=== PATIENT | female | born 1935 | race Asian ===

== ENCOUNTER → 2020-03-27 | Outpatient (CLI) | payer MEDICARE, BC ==
[2020-03-28 15:32] LABS: Creatinine, Urine Random 25.3 mg/dL (27.00-270.00); Protein, Urine Random 11.8 mg/dL (0.0-11.9)
[2020-03-28 16:03] LABS: Bilirubin, Urine Neg (Neg); Blood, Urine Neg (Neg); Glucose Qualitative, Urine 2+ (Neg); Ketones, Urine Neg (Neg); Leukocyte Esterase, Urine Neg (Neg); Nitrite, Urine Neg (Neg); Protein, Urine Neg (Neg); Urobilinogen, Urine NORM (Normal)
[2020-03-28 16:04] LABS: Appearance, Urine Clear (Clear); Color, Urine Yellow (P-Yellow)
== END | disposition home or self-care (01) ==
LOC: LAB SHORT 09:00 → OLS 09:00
PROVIDERS: Internal Medicine
DX: R80.9 Proteinuria, unspecified (principal)
CPT/HCPCS: 81003; 82570; 84156

== ENCOUNTER → 2021-12-25 | Outpatient (CLI) | payer BC ==
[2021-12-25 15:46] LABS: Creatinine, Urine Random 32.5 mg/dL (27.00-270.00)
[2021-12-25 16:32] LABS: Protein, Urine Random 13.6 mg/dL (0.0-11.9)
[2021-12-25 17:03] LABS: Protein/Creat Ratio, Ur Random 0.4
== END | disposition home or self-care (01) ==
LOC: LAB SHORT 13:54 → LAB 13:54
PROVIDERS: Internal Medicine Nephrology
DX: R80.9 Proteinuria, unspecified (principal)
CPT/HCPCS: 82570; 84156

== ENCOUNTER 2023-01-10 11:16 | Inpatient (IN) | payer MEDICARE ==
[~2023-01-10] VITALS: Ht 157.5 cm; Wt 42.4 kg
[2023-01-10] MEDS ORDERED: ACE INHIBITOR (12:07)
[2023-01-10 12:18] LABS: BASOPHILS ABSOLUTE AUTO 0.01 K/mm3 (0.00-0.23); BASOPHILS PERCENT AUTO 0 % (0-2); EOSINOPHILS PERCENT AUTO 0 % (0-6); Hematocrit 22.3 % (33.0-51.0); Hemoglobin 7.3 g/dL (11.5-16.0); IMMATURE GRAN PERCENT AUTO 1 % (0-1); LYMPHOCYTES ABSOLUTE AUTO 0.48 K/mm3 (0.84-5.20); LYMPHOCYTES PERCENT AUTO 4 % (21-46); MONOCYTES ABSOLUTE AUTO 0.34 K/mm3 (0.16-1.47); MONOCYTES PERCENT AUTO 2 % (4-13); Mean Corpuscular HGB 31.1 pg (26.0-34.0); Mean Corpuscular HGB Conc 32.7 g/dL (31.5-36.5); Mean Corpuscular Volume 95 fL (80-100); Mean Platelet Volume 8.7 fL (9.1-12.4); NEUTROPHILS ABSOLUTE AUTO 12.96 K/mm3 (1.96-9.15); NEUTROPHILS PERCENT AUTO 93 % (41-73); Platelet Count 266 K/mm3 (150-400); RDW Coefficient Variation 15.2 % (11.7-14.2); RDW Standard Deviation 51.8 fL (35.1-46.3); Red Blood Cell Count 2.35 M/mm3 (3.80-5.20); White Blood Cell Count 13.89 K/mm3 (4.00-11.30)
[2023-01-10 12:39] LABS: Albumin, Blood 3.1 g/dL (3.4-5.0); Albumin/Globulin Ratio 1.1 (0.8-1.8); Bilirubin, Total 0.6 mg/dL (0.1-1.0); Bun/Creatinine Ratio 33.6 (12.0-20.0); Calcium, Blood 8.3 mg/dL (8.5-10.1); Creatinine, Blood 0.83 mg/dL (0.40-1.00); Globulin, Blood 2.9 g/dL (2.2-4.0); Potassium, Blood 4.9 mmol/L (3.5-5.5)
[2023-01-10 12:57] LABS: BAND PERCENT MAN 2 % (0-8); BASOPHILS PERCENT MAN 0 % (0-2); EOSINOPHILS PERCENT MAN 0 % (0-6); MONOCYTES ABSOLUTE MAN 0.13 K/mm3 (0.16-1.47); MONOCYTES PERCENT MAN 1 % (4-13); NEUTROPHILS ABSOLUTE MAN 13.75 K/mm3 (1.96-9.15); SEG NEUTROPHILS PERCENT MAN 97 % (41-73); TOTAL CELLS COUNTED 100
[2023-01-10 13:18] LABS: Source, Urine Clean Catch
[2023-01-10 13:26] LABS: Appearance, Urine Clear (Clear); Bilirubin, Urine Neg (Neg); Blood, Urine 5+ (Neg); Color, Urine Yellow (P-Yellow); Glucose Qualitative, Urine 4+ (Neg); Ketones, Urine 3+ (Neg); Leukocyte Esterase, Urine Neg (Neg); Nitrite, Urine Neg (Neg); Protein, Urine Neg (Neg); Urobilinogen, Urine NORM (Normal)
[2023-01-10 13:39] LABS: Bacteria Few /hpf; Mucus Light (0-Heavy); Squamous Epithelial Cells Few /hpf (Few)
[2023-01-10] MEDS ORDERED: Amlodipine Bes2.5 MG PO (15:52)
[2023-01-10] MEDS ORDERED: LOSA50 PO (15:53)
[2023-01-10] MEDS ORDERED: METF500 (15:53)
[2023-01-10] MEDS ORDERED: TRULICITY0.75 MG/01 SQ (15:53)
[2023-01-10] MEDS ORDERED: ALLEGRA ALLERG180 MG PO (15:54)
[2023-01-10 19:22] VITALS: BP 119/63
[2023-01-10 21:15] VITALS: BP 116/61
--- NOTE | 2023-01-10 21:28 | NUR ---
ASSUMED CARE PT IS A&O; SPO2 >92% ON RA; MAP >65; NSR. PT DENIES CP, SOB, OR NAUSEA. 1 PRBC NOW FINISHED INFUSING. PT STATES THAT SHE FEELS BETTER THAN ADMIT. WAS ABLE TO AMBULATE AND DENIED DIZZINESS/LIGHTHEADEDNESS, BUT STATED SHE FELT "WOBBLY". DAUGHTER AT BEDSIDE.
[2023-01-10 22:18] LABS: Hematocrit 26.6 % (33.0-51.0); Hemoglobin 8.8 g/dL (11.5-16.0)
[2023-01-11] VITALS (11 sets, daily range): BP systolic 124–172; BP diastolic 70–95
[2023-01-11 04:32] LABS: BASOPHILS ABSOLUTE AUTO 0.03 K/mm3 (0.00-0.23); BASOPHILS PERCENT AUTO 0 % (0-2); EOSINOPHILS ABSOLUTE AUTO 0.05 K/mm3 (0.00-0.68); EOSINOPHILS PERCENT AUTO 1 % (0-6); Hematocrit 28.4 % (33.0-51.0); Hemoglobin 9.3 g/dL (11.5-16.0); IMMATURE GRAN ABSOLUTE AUTO 0.04 K/mm3 (0.00-0.10); IMMATURE GRAN PERCENT AUTO 1 % (0-1); LYMPHOCYTES ABSOLUTE AUTO 1.35 K/mm3 (0.84-5.20); LYMPHOCYTES PERCENT AUTO 16 % (21-46); MONOCYTES ABSOLUTE AUTO 0.74 K/mm3 (0.16-1.47); MONOCYTES PERCENT AUTO 9 % (4-13); Mean Corpuscular HGB 29.9 pg (26.0-34.0); Mean Corpuscular HGB Conc 32.7 g/dL (31.5-36.5); Mean Corpuscular Volume 91 fL (80-100); Mean Platelet Volume 8.5 fL (9.1-12.4); NEUTROPHILS ABSOLUTE AUTO 6.44 K/mm3 (1.96-9.15); NEUTROPHILS PERCENT AUTO 74 % (41-73); Platelet Count 221 K/mm3 (150-400); RDW Coefficient Variation 16.7 % (11.7-14.2); Red Blood Cell Count 3.11 M/mm3 (3.80-5.20); White Blood Cell Count 8.65 K/mm3 (4.00-11.30)
[2023-01-11 05:06] LABS: Bilirubin, Total 0.8 mg/dL (0.1-1.0); Bun/Creatinine Ratio 38.8 (12.0-20.0); Calcium, Blood 7.9 mg/dL (8.5-10.1); Creatinine, Blood 0.65 mg/dL (0.40-1.00); Globulin, Blood 2.9 g/dL (2.2-4.0); Potassium, Blood 4.5 mmol/L (3.5-5.5); Total Protein, Blood 5.9 g/dL (6.4-8.2)
--- NOTE | 2023-01-11 05:27 | NUR ---
SHIFT SUMMARY PT SLEPT/RESTED QUIETLY FOR MAJORITY OF NIGHT W/ DAUGHTER AT BEDSIDE. NO NEW COMPLAINTS WHEN PT WOKE AT 5AM D/T IV PUMP BEEPING. NO ACUTE EVENTS OVERNIGHT.
--- NOTE | 2023-01-11 07:40 | NUR ---
[place] of Care: Care assumed at 0700hr. Patient alert and oriented x4, vss, spO2 100% on RA. Denies pain, discomfort, N/V. 1 person assist to toilet and back to bed without difficulty, no BM, only void. Calm, pleasant, and cooperative with staff. Peripheral IV x1 to lt AC patent and intact. Will continue to monitor for s/s of GI bleeding.
[2023-01-11 11:30] LABS: Hematocrit 26.5 % (33.0-51.0); Hemoglobin 8.7 g/dL (11.5-16.0)
--- NOTE | 2023-01-11 15:51 | NUR ---
Tx to Day Surger: Patient transferred via gurney, accompanied by RN to Day Surgery unit at approx 1545.
--- NOTE | 2023-01-11 16:20 | NUR ---
01/11/23 1620 Santiago Snowden MONITOR INTACT WITH CONTINUOUS PULSE OXIMETRY, CONTINUOUS END TITAL CO2, AND INTERMITTENT BLOOD PRESSURE.AND EKG ANESTHESIA PROVIDER IS DR. BADILLO
--- NOTE | 2023-01-11 19:24 | NUR ---
Shift Summary: Patient remains alert and oriented x4 throughout shift. VSS stable, spO2 100% on RA. Continues to deny pain, discomfort, SOB, or dyspnea. Walking with stand-by assist to toiled without difficulty. To day surgery this afternoon for endoscope, procedure reported to have no difficulties, abnormalities, or interventions. Dr. Marley to room shortly after return, discusses and made plan to perform colonoscopy tomorrow morning. Patient started on bowel-prep medications this evening and to be NPO after 0500hr. One small dark BM late this evening. H+H remain stable, repeat value ordered for 2100hr. Bedside report given to NOC shift RN.
--- NOTE | 2023-01-11 20:25 | NUR ---
ASSUMED PT CARE FROM JOSÉ MIGUEL MOTA ON . PT A&OX4. DENIES ANY FEELINGS OR NAUSEA, SOB, OR CHEST PAIN/PRESSURE. ABODMEN NOTED TO BE SLIGHTLY DISTENDED AND FIRM, PT REPORTS THIS IS NORMAL FOR HER. HR SR IN 90'S. BP STABLE, SEE RECORDED VITAL SIGNS. O2 SATS > 92% ON RA. AFEBRILE. UP TO BATHROOM WITH STAND BY ASSIST, GAIT UNSTEADY. HAS LIQUID, RED BM. RETURNED TO BED. ENCOURAGED TO DRINK BOWEL PREP. CALL LIGHT IN REACH.
[2023-01-11 22:40] LABS: Hematocrit 31.2 % (33.0-51.0); Hemoglobin 10.2 g/dL (11.5-16.0)
[2023-01-12] VITALS (11 sets, daily range): BP systolic 114–159; BP diastolic 64–689
--- NOTE | 2023-01-12 06:23 | NUR ---
SHIFT SUMMARY: PT HAS CONTINUED TO HAVE LIQUID BM'S THROUGHOUT SHIFT. CONTINUES TO DRINK BOWEL PREP. BM THIS A.M. CLEAR, YELLOW. PT NOW NPO PER ORDERES. VITAL SIGNS REMAIN STABLE. DENIES NEEDS AT THIS TIME. CALL LIGHT IN REACH. BED IN LOW POSITION.
--- NOTE | 2023-01-12 09:34 | NUR ---
CHRISTIANO EXTENDED DWELL CATHETER #20 GUAGE-DRESSING C/D/I-FLUSHES WELL.
--- NOTE | 2023-01-12 09:58 | NUR ---
01/12/23 0958 Pio Allen History, Chart, Medications and Allergies reviewed before start of procedure.MONITOR INTACT WITH CONTINUOUS PULSE OXIMETRY, CONTINUOUS END TITAL CO2, AND INTERMITTENT BLOOD PRESSURE.EKG MONITORED DURING PROCEDURE.O2 VIA POM MASK INTACT THROUGHOUT SEDATION/PROCEDURE. See Anesthesia record/DR MILES.
[2023-01-12 13:02] LABS: Hematocrit 28.5 % (33.0-51.0); Hemoglobin 9.1 g/dL (11.5-16.0)
[2023-01-12] MEDS ORDERED: PANT40 PO (14:22)
--- NOTE | 2023-01-12 15:36 | NUR ---
DISCHARGE SUMMARY PT A&OX4, VSS. ACCOMPANIED BY DAUGHTER. IV'S REMOVED. TELE REMOVED. PT HELPED DRESS BY AIDE. DISCHARGE PAPER WORK REVIEWED, NEW MEDICATIONS REVIEWED. FAXED TO [facility] PER PT'S REQUEST. [facility] CLOS[facility] SO THEN FAXED TO [facility] [place]. PT WHEELED OUT BY AIDE.
== END 2023-01-12 15:30 | disposition home or self-care (01) | DRG 378 ==
LOC: ER 11:16 → PCU 16:15
PROVIDERS: Internal Medicine; Internal Medicine Gastroenterology; Physician Assistant; ADMIT Family Medicine
PROC: 30233N1 Transfusion of Nonautologous Red Blood Cells into Peripheral Vein, Percutaneous Approach (ICD-10-PCS; 2023-01-10)
PROC: 0DJ08ZZ Inspection of Upper Intestinal Tract, Via Natural or Artificial Opening Endoscopic (ICD-10-PCS; principal; 2023-01-11 15:30)
PROC: 0DBL8ZX Excision of Transverse Colon, Via Natural or Artificial Opening Endoscopic, Diagnostic (ICD-10-PCS; 2023-01-12)
DX: K92.2 Gastrointestinal hemorrhage, unspecified (principal); D62 Acute posthemorrhagic anemia; E87.1 Hypo-osmolality and hyponatremia; E11.65 Type 2 diabetes mellitus with hyperglycemia; M81.0 Age-related osteoporosis without current pathological fracture; I10 Essential (primary) hypertension; Z66 Do not resuscitate; K64.8 Other hemorrhoids; J30.2 Other seasonal allergic rhinitis; K63.5 Polyp of colon; K44.9 Diaphragmatic hernia without obstruction or gangrene; Z88.8 Allergy status to other drugs, medicaments and biological substances; Z88.5 Allergy status to narcotic agent; Z91.018 Allergy to other foods; Z98.890 Other specified postprocedural states
CPT/HCPCS: 36415; 36430; 80053; 81001; 82272; 82947; 83690; 85014; 85018; 85025; 86850; 86900; 86901; 86923; 88305; 93005; 93010; 96374; 99285-25; A9270; C1751; C9113; J2001; J2704; J7030; J7120; P9016

== ENCOUNTER 2024-03-04 16:16 | Inpatient (IN) | payer BC ==
[~2024-03-04] VITALS: Ht 149.9 cm; Wt 44.9 kg
[~2024-03-04 16:16] MED LIST: ACE INHIBITOR; ALLEGRA ALLERG180 MG PO; LOSARTAN POTAS100 M1 PO; METF500 PO; PANT40 PO; TRULICITY0.75 MG/01 SQ
[2024-03-04 16:53] LABS: BASOPHILS ABSOLUTE AUTO 0.03 K/mm3 (0.00-0.23); BASOPHILS PERCENT AUTO 1 % (0-2); EOSINOPHILS ABSOLUTE AUTO 0.05 K/mm3 (0.00-0.68); EOSINOPHILS PERCENT AUTO 1 % (0-6); Hematocrit 36.3 % (33.0-51.0); IMMATURE GRAN ABSOLUTE AUTO 0.02 K/mm3 (0.00-0.10); IMMATURE GRAN PERCENT AUTO 0 % (0-1); LYMPHOCYTES ABSOLUTE AUTO 0.96 K/mm3 (0.84-5.20); LYMPHOCYTES PERCENT AUTO 15 % (21-46); MONOCYTES PERCENT AUTO 9 % (4-13); Mean Corpuscular HGB Conc 33.1 g/dL (31.5-36.5); Mean Corpuscular Volume 94 fL (80-100); Mean Platelet Volume 8.4 fL (9.1-12.4); NEUTROPHILS ABSOLUTE AUTO 4.87 K/mm3 (1.96-9.15); NEUTROPHILS PERCENT AUTO 75 % (41-73); Platelet Count 257 K/mm3 (150-400); RDW Coefficient Variation 15.6 % (11.7-14.2); RDW Standard Deviation 53.5 fL (35.1-46.3); Red Blood Cell Count 3.87 M/mm3 (3.80-5.20); White Blood Cell Count 6.53 K/mm3 (4.00-11.30)
[2024-03-04 17:12] LABS: Albumin, Blood 3.5 g/dL (3.4-5.0); Bilirubin, Total 0.4 mg/dL (0.1-1.0); Bun/Creatinine Ratio 36.2 (12.0-20.0); Calcium, Blood 9.2 mg/dL (8.5-10.1); Creatinine, Blood 0.64 mg/dL (0.40-1.00); Globulin, Blood 3.6 g/dL (2.2-4.0); Potassium, Blood 4.5 mmol/L (3.5-5.5); Total Protein, Blood 7.1 g/dL (6.4-8.2)
[2024-03-04 21:45] LABS: Hematocrit 31.3 % (33.0-51.0); Hemoglobin 10.3 g/dL (11.5-16.0)
[2024-03-05] MEDS ORDERED: NS 1,000 ML IV SCH (00:40)
[2024-03-05 00:42] LABS: International Normalized Ratio 1.03
[2024-03-05] MEDS ORDERED: Acetaminophen 325 MG TABLET PO PRN (01:00)
[2024-03-05] MEDS ORDERED: Ondansetron HCl 2 MG / ML 2ML Vial IV PRN (01:00)
[2024-03-05] MEDS ORDERED: FLU VACC TS2024-25(6MOS UP)/PF 45 MCG/0.5 ML SYRINGE IM SCH (01:05)
[2024-03-05] MEDS ORDERED: OZEMPIC0.25 MG/02 SQ (02:11)
[2024-03-05 02:28] LABS: Hematocrit 27.5 % (33.0-51.0)
[2024-03-05 06:31] LABS: Hematocrit 27.4 % (33.0-51.0); Hemoglobin 9.1 g/dL (11.5-16.0)
[2024-03-05 08:48] VITALS: BP 151/81
--- NOTE | 2024-03-05 09:00 | NUR ---
ADMISSION NOTE PATIENT ARRIVED TO ROOM 326 AT 0843. A/OX4, ABLE TO MAKE NEEDS KNOWN, PLEASANT AND COOPERATIVE WITH STAFF MEMBERS. ADMITTED FOR GI BLEED, PATIENT STATES HAS NOT HAD ANY BLOODY STOOLS SINCE 0300 TODAY, H/H CONTINUES TO SLOWLY TREND DOWN. PATIENT CONTINENT OF BOWEL/BLADDER, SKIN INTACT, DENIES ANY PAIN. INDEPENDENT IN ROOM WITH AMBULATION. TELEMETRY IN PLACE, RUNNING NORMAL SINUS AT 97 BPM. NPO FOR POSSIBLE SCOPE TODAY, DR. TOVAR NOTIFIED SURGERY VIA TELEOPHONE. NO OTHER CONCERNS AT THIS TIME.
[2024-03-05 09:42] LABS: Hematocrit 25.7 % (33.0-51.0); Hemoglobin 8.4 g/dL (11.5-16.0)
[2024-03-05 12:44] LABS: Hemoglobin 8.3 g/dL (11.5-16.0)
--- NOTE | 2024-03-05 15:33 | NUR ---
Spiritual Care Visit. Pt Request Pt. is awake in bed and welcomes my visit. Pts. daughter is at bedside and is known to this flight paramedic from the community. Facilitated a life review and rapport is established. Pt. displayed evidence of being confident of her new diagnosis and displayed no anxiety. Prayed with Pt. and daughter. Colt verbalizeds gratitude for the spiritual care visit.
[2024-03-05] MEDS ORDERED: MetFORMIN HCl 500 mg PO SCH (17:00)
--- NOTE | 2024-03-05 18:17 | NUR ---
SHIFT SUMMARY PATIENT A/OX4, ABLE TO MAKE NEEDS KNOWN. PLEASANT AND COOPERATIVE WITH STAFF. TELEMETRY IN PLACE. INDEPENDENT IN ROOM. DR. ROJAS CONSULTED AND ORDERED DIET FOR PATIENT. NO GI BLEEDING NOTED THSI SHIFT. DAUGHTER, ANANDA, AT BEDSIDE. HOME MEDS ORDERED BY DR. VASQUES. H/H STABLE, NO OTHER CONCERNS AT THIS TIME.
[2024-03-05 20:36] VITALS: BP 127/63
[2024-03-06] VITALS (7 sets, daily range): BP systolic 105–139; BP diastolic 59–69
[2024-03-06] MEDS ORDERED: Pantoprazole Sodium 40 MG Tab PO SCH (06:00)
[2024-03-06 06:32] LABS: Hemoglobin 7.4 g/dL (11.5-16.0)
[2024-03-06 07:01] LABS: Bun/Creatinine Ratio 25.8 (12.0-20.0); Calcium, Blood 8.2 mg/dL (8.5-10.1); Creatinine, Blood 0.58 mg/dL (0.40-1.00); Potassium, Blood 4.3 mmol/L (3.5-5.5)
--- NOTE | 2024-03-06 07:15 | NUR ---
AO4 CONT PULS OX 02 SATS 90S RFA PIV PATENT, VOIDED X 3 DURING SHIFT NO BMS DURING SHIFT, BED ALARM ON, FALL PRECAUTIONS PLACED,REFUSED PROTONIX MORNING MED, lABS DRAWN THIS AM, PT SLEEPING, CALL LIGHT WN REACH.
[2024-03-06] MEDS ORDERED: Losartan Potassium 50 MG Tab PO SCH (09:00)
[2024-03-06] MEDS ORDERED: NS 1,000 ML IV ONE (11:37)
--- NOTE | 2024-03-06 15:13 | NUR ---
Pt. is awake in bed and welcomes my visit. Pt. is pleasant. Daughter is a supportive presence at bedside. Facilitate an update of Pts. condition. Family verbalizes thankfulness that the Pt's blood tests revealed that she needed more care. Pt. displays evidence of a confidant faina. Prayed with Pt. Both Pt. and daughter verbalize gratitude for the spiritual care visit.
[2024-03-06] MEDS ORDERED: Amlodipine Bes2.5 MG PO (16:08)
[2024-03-06] MEDS ORDERED: FERSU300 PO (16:10)
[2024-03-06] MEDS ORDERED: MULVITA PO (16:10)
[2024-03-06] MEDS ORDERED: B-121000 MC3 PO (16:11)
[2024-03-06] MEDS ORDERED: ASCO500 PO (16:11)
[2024-03-06] MEDS ORDERED: FISH OIL 1,0001 EA10 PO (16:11)
[2024-03-06] MEDS ORDERED: ZINC PO (16:14)
[2024-03-06] MEDS ORDERED: CALCIUM PO (16:14)
[2024-03-06] MEDS ORDERED: NS 1,000 ML IV SCH (16:20)
[2024-03-06 17:20] LABS: Hematocrit 30.8 % (33.0-51.0); Hemoglobin 10.4 g/dL (11.5-16.0)
--- NOTE | 2024-03-06 18:16 | NUR ---
SHIFT SUMMARY PT CONT LEVEL OF CARE. PT NOTED TO BE A&O X4 AND SBA WITH TRANSFERS. PT DID RECEIVE 1UNIT OF PACKED RED BLOOD CELLS THIS SHIFT D/T HGB WAS NOTED TO BE 7.4 HGB 1HR AFTER RECEIVING BLOOD WAS NOTED TO BE 10.4. PT NOTED TO CALL APPROPRAITE WITH CARES. PT REMAINS ON ROOM AIR WITH SATS NOTED TO BE IN UPPER 90'S. PT MAY BE A POSSIBLE DC TOMORROW PENDING HGB.
[2024-03-07 03:39] VITALS: BP 152/79
[2024-03-07 05:40] LABS: Hematocrit 28.5 % (33.0-51.0); Hemoglobin 9.6 g/dL (11.5-16.0)
--- NOTE | 2024-03-07 05:56 | NUR ---
PT REPORTED MEDIUM SIZED BM WITH NO BLEEDING, PT FLUSHED BEFORE ALLOWING STAFF TO VIEW. HEMOGLOBIN DOWN FROM 10.4 TO 9.6 THIS MORNING. VSS - TACHYCARDIA, HTN.
[2024-03-07 06:20] LABS: Bilirubin, Total 0.4 mg/dL (0.1-1.0); Calcium, Blood 8.6 mg/dL (8.5-10.1); Creatinine, Blood 0.64 mg/dL (0.40-1.00); Globulin, Blood 2.9 g/dL (2.2-4.0); Magnesium, Blood 1.8 mg/dL (1.6-2.4); Potassium, Blood 4.1 mmol/L (3.5-5.5); Total Protein, Blood 5.9 g/dL (6.4-8.2)
[2024-03-07 07:21] VITALS: BP 165/86
--- NOTE | 2024-03-07 09:00 | NUR ---
pt laying in bed awake a/ox3, had some confusion this am, but was able to be reoriented, lungs are clear t/o, resp even and unlabored, no cough noted, on r/a, hrr, sr to st, no edema noted, ppp+1, cap refill <3 sec, vs stable, afebrile, piv to rfa site is clear and patent, btx4, abd flat soft nontender, voids without diff, skin c/w/d, maew, sba in room, gait steady, [place], call light in reach.
[2024-03-07] MEDS ORDERED: SENN187 PO (14:13)
--- NOTE | 2024-03-07 15:00 | NUR ---
pt has been discharged to home, daughter here to take her home, iv removed intact, new medication is otc, went over discharge instructions, they verbalized understanding, piv removed intact, dressed with 2x2 and coban, pt tolerated well, left via wheelchair with daughter and manager gas in attendance with all belongings.
== END 2024-03-07 15:00 | disposition home or self-care (01) | DRG 379 ==
LOC: ER 16:16 → ERHOLD 03-05 00:58 → MEDS 03-05 00:58
PROVIDERS: Emergency Medicine; Hospitalist; Physician Assistant; Student in an Organized Health Care Education/Training Program; ADMIT Student in an Organized Health Care Education/Training Program
PROC: 30233N1 Transfusion of Nonautologous Red Blood Cells into Peripheral Vein, Percutaneous Approach (ICD-10-PCS; principal; 2024-03-05)
DX: K57.31 Diverticulosis of large intestine without perforation or abscess with bleeding (principal); D64.9 Anemia, unspecified; I10 Essential (primary) hypertension; K64.8 Other hemorrhoids; E11.9 Type 2 diabetes mellitus without complications; K44.9 Diaphragmatic hernia without obstruction or gangrene; E86.0 Dehydration; I95.9 Hypotension, unspecified; M81.0 Age-related osteoporosis without current pathological fracture; Z88.1 Allergy status to other antibiotic agents; Z88.5 Allergy status to narcotic agent; Z88.8 Allergy status to other drugs, medicaments and biological substances; Z91.018 Allergy to other foods; Z79.84 Long term (current) use of oral hypoglycemic drugs; Z79.899 Other long term (current) drug therapy; Z98.890 Other specified postprocedural states
CPT/HCPCS: 36415; 36430; 80048; 80053; 82947; 83036; 83735; 85014; 85018; 85025; 85610; 85730; 86850; 86900; 86901; 86923; 94762; 99285; A9270; J7030; P9016